=== PATIENT | male | born 1985 | race Caucasian/White ===

== ENCOUNTER 2022-12-25 10:52 | Emergency (ER) | payer BC, SELFPAY ==
--- NOTE | ~2022-12-25 | XR_ITS ---
XR chest 2V DATE: 12/25/2022 11:48 INDICATION: Left chest pain last night TECHNIQUE: PA and lateral views COMPARISON: None FINDINGS: Normal heart size. No hilar or mediastinal enlargement. No pulmonary infiltrate or consolid ation, pleural effusion or pulmonary vascular congestion or pneumothorax. Included skeletal structure s are unremarkable. IMPRESSION: Negative Reviewed, dictated and finalized at location L. IMPRESSION: Negative
--- NOTE | 2022-12-25 10:53 | ECG_ITS ---
Measurements Intervals [place] Rate: 68 P: 59 MT: 162 QRS: 26 QRSD: 105 T: 55 QT: 354 QTc: 378 Interpretive Statements SINUS RHYTHM WITH SINUS ARRHYTHMIA NORMAL ECG NO PREVIOUS ECG AVAILABLE FOR COMPARISON Electronically Signed On 12-25-2022 11:32:58 CDT by Bob Crouch D.O.
[2022-12-25 11:19] VITALS: BP 134/88; PULSE 70; RESP 16; TEMP 36.7; O2SAT 100
[2022-12-25 11:28] LABS: Basophils Absolute Auto 0.1 K/mm3 (0.0-0.1); Eosinophils Absolute Auto 0.1 K/mm3 (0-0.3); Eosinophils Percent Auto 1.7 % (0-4.4); Hemoglobin 14.8 g/dL (14.0-18.0); Immature Granulocyte Absolute 0.02 K/mm3 (0.00-0.031); Immature Granulocyte Percent A 0.3 % (0-0.5); Lymphocytes Absolute Auto 3.15 K/mm3 (0.9-3.2); Lymphocytes Percent Auto 40.4 % (18.3-44.2); Mean Corpuscular HGB Conc 34.4 g/dl (32-36); Mean Corpuscular Hemoglobin 31.8 pg (26-34); Mean Corpuscular Volume 92.5 fl (80-100); Mean Platelet Volume 9.4 fl (7.4-10.4); Monocytes Absolute Auto 0.4 K/mm3 (0.1-0.6); Monocytes Percent Auto 5.6 % (2.6-8.5); Platelet Count Result 293 k/mm3 (150-375); Red Blood Count 4.65 M/mm3 (4.6-6.20); Red Cell Distribution Width 13.1 % (11.5-14.5); White Blood Count 7.8 K/mm3 (4.5-10.0)
[2022-12-25 11:43] LABS: Prothrombin Time 12.8 Seconds (11.1-14.7)
[2022-12-25 11:45] LABS: Alanine Aminotransferase 37 U/L (6-50); Albumin Level 5.1 g/dL (3.5-5.1); Alkaline Phosphatase 50 U/L (38-126); Anion Gap 9 mmol/L (8-16); Aspartate Amino Transferase 28 U/L (17-59); Bilirubin,Total 0.5 mg/dL (0.2-1.3); Blood Urea Nitrogen 14 mg/dL (9-20); Calcium 9.4 mg/dL (8.4-10.2); Carbon Dioxide 25 mmol/L (22-30); Chloride 105 mmol/L (98-107); Estimated CRCL calculation 111 ml/min; Estimated Glomerular Filt Rate > 60; Glucose 89 mg/dL (65-110); Lipase 48 U/L (23-300); Sodium 139 mmol/L (137-145)
[2022-12-25 11:57] LABS: Troponin I < 0.012 ng/mL (0.000-0.034)
[2022-12-25 14:28] LABS: Troponin I < 0.012 ng/mL (0.000-0.034)
[2022-12-25 14:48] VITALS: O2SAT 100
[2022-12-25 14:50] VITALS: BP 135/93; PULSE 78; RESP 16; O2SAT 100
--- NOTE | 2022-12-25 15:37 | ED.GENADULT ---
HPI - General Adult General Chief complaint: Chest Pain Stated complaint: CP Time Seen by Provider: 12/25/22 15:10 History of Present Illness HPI narrative: 37 male presented the emergency department for evaluation of substernal chest pain that radiated to his left chest. Patient states on Saturday he was resting on the couch when he had onset of the chest pain. Patient reports pain lasted approximately 5 minutes did radiate to his left shoulder and did resolve. Patient states he possibly had some diaphoresis with this but denies any associated nausea vomiting. Patient denies any associated shortness of breath. Patient states today he was having some increased chest pressure so he became concerned and presented to the emergency department for evaluation. Patient denies having a recurrence of the intense chest pain. Patient states he has no prior history of coronary disease. Patient does have a history of heart palpitations and did have a recent echocardiogram and does follow-up with a primary care physician routinely. Patient has no prior history of diabetes, hypertension, hypercholesterol. Patient also has no prior history of blood embolism or DVT. Patient denies any recent surgeries, falls or injuries, hormone replacement, recent long car rides or plane flights. Currently at time of examination patient denies any symptoms and states he does feel improved Related Data Allergies Allergy/AdvReac Type Severity Reaction Status Date / Time Penicillins Allergy Mild RASH Verified 12/25/22 14:50 Review of Systems Review of Systems: All systems reviewed & are unremarkable except as noted in HPI and below Exam Narrative: APPEARANCE: Well appearing, no pain, no distress, well-nourished. HEAD: normocephalic, atraumatic. EYES: PERRLA/EOMI, conjunctivae clear. NOSE: Normal no drainage NECK: Supple. No adenopathy, no masses. RESPIRATORY: Airway patent, respirations nonlabored. Clear to auscultation bilaterally, no rales, rhonchi, wheezing. CARDIOVASCULAR: Regular rate and rhythm without murmurs rubs or gallops. ABDOMINAL: Soft, nontender, nondistended, normal bowel sounds MUSCULOSKELETAL: Moves all extremities. Strength/ROM intact, No edema, No calf tenderness. NEURO: Alert. Cranial nerves II through XII intact. Grossly intact SKIN: Warm, dry. Normal Color Course Course Emergency Course: Patient denies any current chest pain, chest pressure or shortness of breath. Differential diagnosis for the patient's symptoms did include pneumonia, gastritis, esophagitis, pulmonary embolism, ACS. Patient is afebrile with no leukocytosis and has no other hypoxic nor tachycardic. Patient had negative cell troponins. EKG showed normal sinus rhythm and chest x-ray showed no acute cardiopulmonary normality. Patient's work-up is encouraging for ruling out ACS and patient is low risk for PE. No evidence of pneumonia or pneumothorax on imaging. Patient was encouraged to have close follow-up with his primary care physician. Vital Signs Vital signs: Vital Signs Temperature 98.1 F 12/25/22 11:19 Pulse Rate 70 12/25/22 11:19 Respiratory Rate 16 12/25/22 11:19 Blood Pressure 134/88 12/25/22 11:19 Pulse Oximetry 100 12/25/22 11:19 Temperature 98.1 F 12/25/22 11:19 Pulse Rate 78 12/25/22 16:00 Respiratory Rate 16 12/25/22 16:00 Blood Pressure 139/93 H 12/25/22 16:00 Pulse Oximetry 100 12/25/22 16:00 Oxygen Delivery Room Air 12/25/22 14:48 Medical Decision Making Vital Signs Vital Signs: Vital Signs Temperature 98.1 F 12/25/22 11:19 Pulse Rate 70 12/25/22 11:19 Respiratory Rate 16 12/25/22 11:19 Blood Pressure 134/88 12/25/22 11:19 Pulse Oximetry 100 12/25/22 11:19 Temperature 98.1 F 12/25/22 11:19 Pulse Rate 78 12/25/22 16:00 Respiratory Rate 16 12/25/22 16:00 Blood Pressure 139/93 H 12/25/22 16:00 Pulse Oximetry 100 12/25/22 16:00 Oxygen Delivery Room Air
[2022-12-25 16:00] VITALS: BP 139/93; PULSE 78; RESP 16; O2SAT 100
== END 2022-12-25 16:02 | disposition home or self-care (01) ==
PROVIDERS: Emergency Medicine; Emergency Provider Emergency Medicine; PCP Nurse Practitioner Family
DX: R07.9 Chest pain, unspecified (principal)
CPT/HCPCS: 36415; 71046; 80053; 83690; 84484; 85025; 85610; 85730; 93005; 99284